=== PATIENT | female | born 1975 ===

== ENCOUNTER 2016-10-05 21:29 | Emergency (ER) | payer MEDICAID ==
[2016-10-05 21:29] VITALS: BMI 34.6
[2016-10-05 21:36] VITALS: BP 160/90; PULSE 98; TEMP 97; O2SAT 99
[2016-10-05] MEDS ORDERED: Albuterol-Ipratrop 3 mg / 0.5 (3 ml) UD INH STA (21:56)
[2016-10-05] MEDS ORDERED: Albuterol-Ipratrop 3 mg / 0.5 (3 ml) UD ONE (22:12)
--- NOTE | 2016-10-05 22:36 | ED PDOC ---
HPI: CCC, URI, Sore Throat Time Seen by Provider: 10/05/16 21:43 Chief Complaint (Nursing): Shortness Of Breath Chief Complaint (Provider): Cough History Per: Patient History/Exam Limitations: no limitations Have you had recent travel within the past 21 days to any of the following countries: [place], [place], [place] or [place]?: No Onset/Duration Of Symptoms: Days (7x) Current Symptoms Are (Timing): Still Present Location Of Pain: Throat Associated Symptoms: Fever, Sore Throat, Cough, Sputum (cough productive of green and yellow sputum, with minimal specks of blood), Nasal Congestion, Nausea. denies: Vomiting Severity: Moderate Additional Complaint(s): 41 year old female presents to the ED with complaints of coughing productive of green and yellow sputum that has been ongoing for the past 1x week. She denies hematemesis, but reports that her sputum has a minimal amount of blood specks. She has associated symptoms of throat pain, nasal congestion, chest tightness, and generalized body aches and pain. She reports that she can't sleep because the coughing keeps her up. She has been taking different cold medicines (nyquil , dayquil, and robitussin) with no relief. She denies having a fever, and chills. She denies having any recent sick contacts or travel outside of the [place]. PMD: Reg Soria MD. Past Medical History Reviewed: Historical Data, Nursing Documentation, Vital Signs Vital Signs: Last Vital Signs Temp 97.0 F L 10/05/16 21:33 Pulse 98 H 10/05/16 21:33 Resp 21 10/05/16 22:59 BP 160/90 H 10/05/16 21:33 Pulse Ox 99 10/05/16 22:44 - Medical History PMH: No Chronic Diseases - Surgical History Surgical History: Other surgeries: hammertoe surgery - Family History Family History: States: No Known Family Hx - Social History Current smoker - smoking cessation education provided: No Alcohol: None Drugs: Denies - Home Medications Home Medications: Ambulatory Orders Medication Instructions Recorded Vitamins6 [Pre-] 1 tab PO DAILY 12/26/14 oxyCODONE/Acetaminophen [Percocet 1 tab PO Q4 PRN #0 tab 12/29/14 5/325 mg Tab] Albuterol HFA [Ventolin HFA 90 2 puff IH Q4H PRN #1 inh 10/05/16 mcg/actuation (8 g)] Azithromycin [Zithromax] 250 mg PO DAILY #6 dose 10/05/16 Prednisone 50 mg PO DAILY #2 tablet 10/05/16 Promethazine HCl/Codeine 10 ml PO Q6 PRN #120 ml 10/05/16 [Prometh-Codein 6.25-10 mg/5 ml] - Allergies Allergies/Adverse Reactions: Allergies Allergy/AdvReac Type Severity Reaction Status Date / Time No Known Allergies Allergy Verified 12/26/14 09:22 Review of Systems ROS Statement: Except As Marked, All Systems Reviewed And Found Negative (and as per HPI) Constitutional: Negative for: Fever, Chills ENT: Positive for: Nose Discharge (green and yellow sputum), Nose Congestion, Throat Pain Cardiovascular: Positive for: Other (chest tightness) Respiratory: Positive for: Cough, Sputum (green and yellow) Gastrointestinal: Positive for: Nausea. Negative for: Vomiting, Abdominal Pain , Diarrhea, Hematemesis Physical Exam - Reviewed Nursing Documentation Reviewed: Yes Vital Signs Reviewed: Yes - Physical Exam Appears: Positive for: Well, Non-toxic, In Acute Distress (mild painful distress , tired appearance) Head Exam: Positive for: ATRAUMATIC, NORMOCEPHALIC Skin: Positive for: Normal Color, Warm, Dry Eye Exam: Positive for: Normal appearance ENT: Positive for: Pharynx Is (clear), Pharyngeal Erythema. Negative for: Tonsillar Exudate, Tonsillar Swelling Neck: Positive for: Painless ROM, Supple, Trachea Midline Cardiovascular/Chest: Positive for: Regular Rate, Rhythm. Negative for: Murmur Respiratory: Positive for: Rhonchi (scattered rhonchi bilaterally), Other (good air movement). Negative for: Wheezing, Respiratory Distress Gastrointestinal/Abdominal: Positive for: Bowel Sounds, Soft. Negative for: Tenderness Back: Positive for: Normal Inspection. Negative for: Decreased ROM Extremity: Negative for: Pedal Edema, Calf Tenderness Lymphatic: Negative for: Adenopathy Neurologic/Psych: Positive for: Alert. Negative for: Motor/Sensory Deficits - ECG ECG: Positive for: Interpreted By Me, Viewed By Me ECG Rhythm: Positive for: Normal QRS, Normal ST Segment, Sinus Rhythm (at 85) O2 Sat by Pulse Oximetry: 99 (RA) Pulse Ox Interpretation: Normal Nebulizer Treatments/Peak Flow - Duonebs Number of Bronchodilator Doses given?: 2 - Pre/Post Peak Flow Pre Treatment Peak Flow: 1 Post treatment Peak Flow: 1 Medical Decision Making Medical Decision Makin:43 Initial impression: 41 year old female patient with a cough, nasal congestion, , runny nose, and a productive cough with green and yellow sputum. Differential diagnoses include but are not limited to bronchitis and brochospasm. Initial plan: * XRay chest 2 views * udip * duoneb 3mlx2 doses= 6ml INH * solu-medrol 125mg IM * peak flow pre and post * influenza A B * rapid strep group A antigen * reevaluation CXR negative flu/strep neg Pt feels better s/p albuterol Scribe Attestation: Documented by Kristina Vick, acting as a scribe for Angela Aguila MD. Provider Scribe Attestation: All medical record entries made by the Scribe were at my direction and personally dictated by me. I have reviewed the chart and agree that the record accurately reflects my personal performance of the history, physical exam, medical decision making, and the department course for this patient. I have also personally directed, reviewed, and agree with the discharge instructions and disposition. Disposition - Clinical Impression Clinical Impression: Bronchospasm with bronchitis, acute - Disposition Referrals: [facility] [Outside] (CALL [facility] TOMORROW FOR ASSISTANCE WITH FINDING PCP FOLLOW UP BY THE END OF THE WEEK) Disposition: Routine/Home Disposition Time: 23:00 Condition: IMPROVED Prescriptions: Prednisone 50 mg PO DAILY #2 tablet Promethazine HCl/Codeine [Prometh-Codein 6.25-10 mg/5 ml] 10 ml PO Q6 PRN #120 ml PRN Reason: SEVERE COUGH ONLY Albuterol HFA [Ventolin HFA 90 mcg/actuation (8 g)] 2 puff IH Q4H PRN #1 inh PRN Reason: chest tightness Azithromycin [Zithromax] 250 mg PO DAILY #6 dose Instructions: Acute Bronchitis (ED), Bronchospasm (ED)
[2016-10-05 23:00] VITALS: RESP 21
--- NOTE | 2016-10-06 13:21 | RAD ---
HISTORY: cough sob COMPARISON: Upper TECHNIQUE: Chest PA and lateral FINDINGS: LUNGS: The lungs are well inflated and clear. PLEURA: No significant pleural effusion identified. No pneumothorax apparent. CARDIOVASCULAR: The heart is normal in size. OSSEOUS STRUCTURES: No significant abnormalities. VISUALIZED UPPER ABDOMEN: Normal. OTHER FINDINGS: None. IMPRESSION: No active pulmonary disease.
== END 2016-10-05 23:36 | disposition home or self-care (01) ==
LOC: H.ER 21:29
DX: J20.9 Acute bronchitis, unspecified (principal); R06.02 Shortness of breath; R09.81 Nasal congestion; J02.9 Acute pharyngitis, unspecified

== ENCOUNTER 2017-05-29 12:34 | Emergency (ER) | payer MEDICAID ==
[2017-05-29 12:34] VITALS: BMI 34.6
[2017-05-29 13:02] VITALS: BP 123/70; PULSE 72; RESP 18; TEMP 97.8; O2SAT 99
--- NOTE | 2017-05-29 13:12 | ED PDOC ---
Upper Extremity Pain/Injury Time Seen by Provider: 05/29/17 12:40 Chief Complaint (Nursing): Abnormal Skin Integrity Chief Complaint (Provider): Right hand laceration History Per: Patient History/Exam Limitations: no limitations Onset/Duration Of Symptoms: Mins Current Symptoms Are (Timing): Still Present Additional Complaint(s): 41yo female, presents to ED for evaluation of a laceration to her right palm sustained prior to arrival. Patient reports she was attempting to open her umbrella and a prong from the umbrella injured her palm. She has no other complaints. Past Medical History Reviewed: Historical Data, Nursing Documentation, Vital Signs Vital Signs: Last Vital Signs Temp 97.8 F 05/29/17 12:59 Pulse 72 05/29/17 12:59 Resp 18 05/29/17 12:59 BP 123/70 05/29/17 12:59 Pulse Ox 99 05/29/17 12:59 - Medical History PMH: Hypercholesterolemia Denies: Diabetes, Hepatitis, HIV, HTN, Seizures, Sexually Transmitted Disease - Surgical History Surgical History: - Family History Family History: States: No Known Family Hx - Home Medications Home Medications: Ambulatory Orders Medication Instructions Recorded Vitamins6 [Pre-Lisa] 1 tab PO DAILY 12/26/14 oxyCODONE/Acetaminophen [Percocet 1 tab PO Q4 PRN #0 tab 12/29/14 5/325 mg Tab] Albuterol HFA [Ventolin HFA 90 2 puff IH Q4H PRN #1 inh 10/05/16 mcg/actuation (8 g)] Azithromycin [Zithromax] 250 mg PO DAILY #6 dose 10/05/16 Prednisone 50 mg PO DAILY #2 tablet 10/05/16 Promethazine HCl/Codeine 10 ml PO Q6 PRN #120 ml 10/05/16 [Prometh-Codein 6.25-10 mg/5 ml] - Allergies Allergies/Adverse Reactions: Allergies Allergy/AdvReac Type Severity Reaction Status Date / Time No Known Allergies Allergy Verified 12/26/14 09:22 Review of Systems Musculoskeletal: Positive for: Hand Pain (laceration to right hand) Physical Exam - Reviewed Nursing Documentation Reviewed: Yes Vital Signs Reviewed: Yes - Physical Exam Appears: Positive for: Non-toxic, No Acute Distress Skin: Positive for: Normal Color Eye Exam: Positive for: Normal appearance Neck: Positive for: Supple Respiratory: Negative for: Respiratory Distress Pulses-Radial (R): 2+ Extremity: Positive for: Normal ROM, Capillary Refill (< 2 seconds), Other ( flap laceration noted to pad of right hand, below 4th digit. Mild active bleeding.). Negative for: Deformity Neurologic/Psych: Positive for: Alert, Oriented - ECG O2 Sat by Pulse Oximetry: 99 (RA) Pulse Ox Interpretation: Normal Medical Decision Making Medical Decision Making: Time: 1300 Impression: Laceration Plan: -- Wound cleaned and irrigated with normal saline. Dermabond applied and hand placed in a splint. Patient's tetanus is up to date. Patient tolerated procedure well. Stable for discharge home. Scribe Attestation: Documented by Shy Pennington acting as a scribe for MIKY Rodriguez Provider Attestation: All medical record entries made by the Scribe were at my direction and personally dictated by me. I have reviewed the chart and agree that the record accurately reflects my personal performance of the history, physical exam, medical decision making, and the department course for this patient. I have also personally directed, reviewed, and agree with the discharge instructions and disposition. Disposition - Disposition
== END 2017-05-29 14:26 | disposition home or self-care (01) ==
LOC: H.ER 12:34
DX: S61.411A Laceration without foreign body of right hand, initial encounter (principal); W26.8XXA Contact with other sharp object(s), not elsewhere classified, initial encounter